=== PATIENT | female | born 1995 | race Caucasian/White ===

== ENCOUNTER → 2016-05-16 | Outpatient (REF) | payer OTHER | LOC: M SFHCCLAY 14:20 | PROVIDERS: ATTEND Nurse Practitioner | DX: J02.9 Acute pharyngitis, unspecified (principal) ==

== ENCOUNTER → 2019-07-02 | Outpatient (REF) | payer MEDICAID, SELFPAY | LOC: M LAB REF 12:29 | PROVIDERS: ATTEND Physician Assistant | DX: R30.0 Dysuria (principal) ==

== ENCOUNTER → 2019-07-10 | Outpatient (REF) | payer OTHER ==
[2019-07-10 13:28] LABS: HEMOGLOBIN 12.9 g/dl (12.0-15.5); MEAN CORPUSCULAR HEMOGLOBIN 30.1 pg (27.0-33.0); MEAN CORPUSCULAR HGB CONC 33.9 g/dl (32.0-36.5); MEAN CORPUSCULAR VOLUME 88.8 fl (80.0-96.0); PLATELET COUNT, AUTOMATED 291 10^3/uL (150-450); RED BLOOD COUNT 4.28 10^6/uL (4.00-5.40); WHITE BLOOD COUNT 7.3 10^3/uL (4.0-10.0)
[2019-07-10 14:23] LABS: HEPATITIS B SURFACE ANTIGEN NEGATIVE (NEGATIVE); HEPATITIS C VIRUS ABY INDEX 0.1 INDEX (<0.8); HIV 1&2 SCREEN CENTAUR NEGATIVE (NEGATIVE)
[2019-07-10 14:50] LABS: CHLAMYDIA DNA AMPLIFICATION NEGATIVE (NEGATIVE); GC DNA AMPLIFICATION NEGATIVE (NEGATIVE)
== END ==
LOC: M PLALAB 10:47
PROVIDERS: ATTEND Advanced Practice Midwife
DX: Z34.01 Encounter for supervision of normal first pregnancy, first trimester (principal)

== ENCOUNTER → 2019-09-03 | Outpatient (CLI) | payer OTHER ==
--- NOTE | 2019-09-03 13:24 | REP ---
OBSTETRIC SONOGRAPHY: HISTORY: Supervision of for anatomy. FINDINGS: Scanning through the gravid uterus demonstrates a single living intrauterine gestation in a transverse lie, head to the maternal right. motion is observed and heart rate is recorded at 158 beats per minute. A posterior fundal grade 0 placenta is seen without evidence of previa. Amniotic fluid is subjectively normal. Closed cervical length is measured transabdominally at 3.1 cm. No extrauterine abnormality is observed. No abnormality is observed. spine, right ventricular cardiac outflow tract, and nose and lips were less than optimally seen today due to position. The following additional anatomic structures are identified and felt to be unremarkable: cranium, choroid plexus, cavum, cerebellum and posterior fossa, four-chamber heart with left and ventricular outflow tract view, diaphragm, left-sided stomach, abdominal wall cord insertion, three-vessel cord, kidneys and bladder, upper and lower extremities. BIOMETRY CHART: BPD 4.4 cm = 19 weeks 1 day HC 16.5 cm = 19 weeks 1 day AC 13.7 cm = 19 weeks 1 day FL 3.0 cm = 19 weeks 1 day HL 2.9 cm = 19 weeks 2 days HC/AC ratio normal 1.20. Cephalic index normal 0.73. Estimated weight 276 grams, 0 pounds 9 ounces, 52nd percentile for 19 weeks 0 days. IMPRESSION: Viable single intrauterine gestation of 19 weeks 0 days by today's composite criteria. CORINA by today's sonography January 28, 2020. nose and lips, spine, and right ventricular outflow tract views less than optimally achieved due to position. Transverse lie.
== END ==
LOC: M WHC 11:09
PROVIDERS: ATTEND Advanced Practice Midwife
DX: O32.2XX0 Maternal care for transverse and oblique lie, not applicable or unspecified (principal); Z36.89 Encounter for other specified antenatal screening; Z3A.19 19 weeks gestation of pregnancy

== ENCOUNTER → 2019-10-30 | Outpatient (CLI) | payer OTHER ==
[2019-10-30 11:49] LABS: HEMATOCRIT 35.5 % (36.0-47.0); HEMOGLOBIN 11.6 g/dl (12.0-15.5); MEAN CORPUSCULAR HEMOGLOBIN 30.1 pg (27.0-33.0); MEAN CORPUSCULAR HGB CONC 32.7 g/dl (32.0-36.5); PLATELET COUNT, AUTOMATED 217 10^3/uL (150-450); RED BLOOD COUNT 3.86 10^6/uL (4.00-5.40); WHITE BLOOD COUNT 7.5 10^3/uL (4.0-10.0)
== END ==
LOC: M PLALAB 08:48
PROVIDERS: ATTEND Advanced Practice Midwife
DX: Z34.02 Encounter for supervision of normal first pregnancy, second trimester (principal); Z3A.00 Weeks of gestation of pregnancy not specified

== ENCOUNTER → 2019-10-30 | Outpatient (CLI) | payer OTHER ==
--- NOTE | 2019-11-06 06:58 | REP ---
OBSTETRIC ULTRASOUND REASON FOR EXAM: Follow-up of anatomy. On the prior study dated 09/03/2019, nose and lips, spine, and right cardiac ventricular outflow tract were not optimally demonstrated. Todays study is for follow-up of these structures. FINDINGS: There is a single intrauterine gestation in a transverse lie with the head to the maternal left. The placenta is posterior, grade 0 without previa and without abruptio. heart rate is 150 beats per minute. Cervix is 3.7 cm in length. The composite gestational age by todays exam is 26 weeks 6 days. The weight by todays exam is 1014 grams. This is the 23rd percentile. On the study today, the spine, the nose and lips, and the cardiac right and left ventricular outflow tracts are satisfactorily demonstrated and are unremarkable. The remainder of the anatomy was previously unremarkable and is not repeated. [facility]
== END ==
LOC: M WHC 08:02
PROVIDERS: ATTEND Specialist
DX: Z34.83 Encounter for supervision of other normal pregnancy, third trimester (principal)

== ENCOUNTER → 2020-01-04 | Outpatient (REF) | payer OTHER | LOC: M SFHCWAGY 13:20 | PROVIDERS: ATTEND Advanced Practice Midwife | DX: Z34.03 Encounter for supervision of normal first pregnancy, third trimester (principal) ==

== ENCOUNTER 2020-01-24 15:25 | Inpatient (IN) | payer OTHER ==
[~2020-01-24] VITALS: Ht 162.6 cm; Wt 85.3 kg
[2020-01-24] MEDS ORDERED: TUMS500C PO (15:41)
[2020-01-24] MEDS ORDERED: PRENTAB9 PO (15:41)
[2020-01-24 15:47] VITALS: BP 133/81
[2020-01-24] MEDS ORDERED: LACTATED RINGER'S 1000 ML IV STA (15:50)
[2020-01-24] MEDS ORDERED: LR 1,000 ML IV SCH (15:50)
--- NOTE | 2020-01-24 16:39 | HPEPDOC ---
Obstetrical History & Physical General Date of Admission Jan 24, 2020 at 15:50 History of Present Illness Gloria is a 24yo with SIUP at 39w5d by 1st trimester ultrasound aniketin g for leaking of clear fluid that started at 0900 this morning. She called and stated leaking, desired to come in after some time. States she feels contractions mostly in her back. No vaginal bleeding. Good movement. No fevers/chills. 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 Past Medical History Medical History headaches Surgical History: [place] teeth Family History Significant Family History: No pertinent family hx Social History Marital Status: Family situation: Spouse/partner home Psychosocial History: No pertinent psych hx * Smoker: non-smoker Alcohol: Denies Drugs: denies Imunizations Tdap status: current Influenza Status: declined Allergies Coded Allergies: No Known Allergies (Unverified , 01/24/20) Medications Scheduled No.137/Iron/Folic Acd ( Vitamin Tablet) 1 Each Tablet, 1 TAB PO DAILY Miscellaneous Medications Calcium Carbonate (Tums) 200 Mg Tab.chew, 500 MG PO Physical Examination Physical Examination GENERAL: Alert and oriented times three. ABDOMEN: Gravid and non-tender to touch. FETUS: Is vertex (VTX) by sterile vaginal examination EXTREMITIES: No edema of BLE Nitrazine of soaked marianne-pad is robustly POSITIVE Vital Signs/I&O Vital Signs Date Time Temp Pulse Resp B/P (MAP) Pulse Ox O2 Delivery O2 Flow Rate FiO2 01/24/20 15:47 98.2 72 133/81 (98) Laboratory Data 24H LABS Laboratory Tests 2 01/24/20 15:53: Serology Scanned Report Hepatitis B Testing Pertinent Laboratoy Data Blood Type: A+ RBC Antibody Screen: Negative HIV: Negative Hepatitis B: Negative Hepatitis C: Negative Rapid Plasma Reagin: Nonreactive Rubella: Immune Chlamydia/Gonorrhea: Negative Group B Streptococcus: Negative Glucose Tolerance Test: 78 Anatomy Ultrasound Ultrasound Date: Oct 30, 2019 Placenta Location: Posterior Normal Anatomy: Yes Placenta Previa: No Steroid Therapy Steroid Therapy: No Vaginal Examination Dilation: 1cm Effacement: 70% Station: -2 Cervical Consistency: Soft Cervical Position: Middle Presentation: Cephalic presentation Assessment Heart Rate (FHR): 125 Variability: Moderate Accelerations: Positive Decelerations: None Tocometer Contractions: Yes Frequency: irregular, every 3-7 min. Strength: palpated as mild Assessment/Plan Assessment Gloria is a 24yo with SIUP at 39w5d by 1st trimester ultrasound presenting with PROM, at 0900 this morning, clear. Irregular ctx. SCE /-2. Carrillo cervical bulb placed with 40cc NS, no issues. Plan to initiate pitocin IV. Cephalic. Vitals wnl, exam benign. Nitrazine positive. Cat I FHRT. Plan Admit and orient. 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 Diet: regular for dinner then clear liquids Group B Streptococcus (GBS) negative Labs and intravenous (IV) per unit protocol. Counseled on carrillo bulb, Pitocin and induction of labor (IOL). Lactated Ringers (LR): Bolus 800 mL, then at 125 mL/hr if epidural is desired Anticipate normal spontaneous delivery () MD Renetta Casanova Katrina D MD Jan 24, 2020 16:10
[2020-01-24 16:45] LABS: HEMOGLOBIN 11.3 g/dl (12.0-15.5); MEAN CORPUSCULAR HEMOGLOBIN 28.4 pg (27.0-33.0); MEAN CORPUSCULAR HGB CONC 32.3 g/dl (32.0-36.5); MEAN CORPUSCULAR VOLUME 87.9 fl (80.0-96.0); PLATELET COUNT, AUTOMATED 223 10^3/uL (150-450); RED BLOOD COUNT 3.98 10^6/uL (4.00-5.40); WHITE BLOOD COUNT 9.5 10^3/uL (4.0-10.0)
[2020-01-24] MEDS ORDERED: OXYTOCIN DRIP 30 UNITS in IV 1 EA IV SCH ×2 (16:45→22:39)
[2020-01-24] MEDS ORDERED: PROMETHAZINE INJ 25 MG/ML VIAL (J2550) IV PRN (17:00)
[2020-01-24] MEDS ORDERED: BUTORPHANOL 2 MG/ML INJ (J0595) IV PRN (17:00)
[2020-01-24] MEDS ORDERED: FENTANYL 2MCG/ML ROPIVACAINE 0.2% IN 0.9% NACL 100ML IVBAG As Ordered ONE (19:39)
[2020-01-24] MEDS ORDERED: diphenhydrAMINE 50MG/ML VIAL (J1200) IV PRN (20:30)
[2020-01-24] MEDS ORDERED: NALOXONE INJ 0.4MG/1ML VIAL (J2310 PER 1MG) IV PRN (20:30)
[2020-01-24] MEDS ORDERED: ONDANSETRON 4MG/2ML VIAL IV PRN (20:30)
[2020-01-24] MEDS ORDERED: ePHEDrine SULFATE 25 MG/5 ML(5MG/ML) SYRINGE IV PRN (20:30)
[2020-01-24] MEDS ORDERED: EPIDURAL/PCA KEYS XX PRN (20:30)
[2020-01-24] MEDS ORDERED: REFRIGERATOR IV KEYS XX PRN (20:30)
[2020-01-24] MEDS ORDERED: EPIDURAL COMMENT XX SCH (20:30)
[2020-01-24] MEDS ORDERED: FENTANYL/ROPIVACAINE/NACL BAG 100 ML EPIDURAL SCH (20:30)
[2020-01-24] MEDS ORDERED: LACTATED RINGER'S 1000 ML IV PRN (20:30)
--- NOTE | 2020-01-24 20:56 | IPNPDOC ---
Text Note Date of Service The patient was seen on 01/24/20. NOTE Intrapartum Note Pt doing well, just received epidural. Pitocin currently at 4mu. [place] bulb fell out soon after it was placed. Vitals wnl, afebrile SCE: 5/80/-1, clear fluid Will continue to titrate up on pitocin per protocol once patient is fully comfortable with epidural Will continue to closely observe Plan to recheck in 4hr or earlier as indicated Safe to proceed Rosita Jacskon MD [facility] I+O [facility] I+O Laboratory Tests 01/24/20 16:27 Vital Signs Date Time Temp Pulse Resp B/P (MAP) Pulse Ox O2 Delivery O2 Flow Rate FiO2 01/24/20 17:59 18 01/24/20 15:47 98.2 72 133/81 (98) Rosita Jackson MD Jan 24, 2020 20:56
[2020-01-24] MEDS ORDERED: DIBUCAINE 1% OINTMENT 30GM TOP PRN (22:45)
[2020-01-24] MEDS ORDERED: RHOGAM 300 MCG (1500 IU) INJ (J2790) IM SCH (22:45)
[2020-01-24] MEDS ORDERED: ACETAMINOPHEN TAB 650MG DOSE (2X325MG) PO PRN (22:45)
[2020-01-24] MEDS ORDERED: MEASLES,MUMPS,RUBELLA VACCINE INJ (MMR-II) (90707) SC SCH (22:45)
--- NOTE | 2020-01-24 22:55 | DNPDOC ---
[facility] Delivery Note Delivery Note DATE OF DELIVERY: 01/24/2020 PREDELIVERY DIAGNOSIS: 39w5d gestation and labor. POST DELIVERY DIAGNOSIS: Delivered. 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 FINDINGS: 5 pound 11 oz (2570g) male , Score 8/9 DELIVERY SUMMARY: Gloria is a 24yo [id number] s/p uncomplicated after presenting with PROM at 39w5d, delivering at 2159 on 01/24/20. She was 1cm on presentation, had carrillo cervical bulb placed and was started on IV pitocin. After carrillo bulb fell out, she soon received epidural and then she progressed very quickly to C/C/0 at which point she began pushing. Within a few sets of contractions, head delivered OA, restituted GREGORIA. Left anterior shoulder delivered followed by post erior shoulder and corpus. was placed on maternal abdomen, apgars 8/9, vigorous. After approximately 2 minutes, cord clamped x2 and cut by FOB. With uterine massage and traction on the cord, placenta delivered spontaneously and intact with 3 vessel centrally inserted cord. IV pitocin given per protocol. More uterine massage performed with cessation of bleeding, EBL 200ml. Inspection of perineum and vagina revealed a small superficial jono at the vaginal outlet (1mll) repaired with a figure of 8 using 3-0 vicryl suture as well as a left labial laceration repaired with 3-0 vicryl in routine fashion, both having excellent reapproximation and total hemostasis (1% lidocaine used for repair). All counts correct x2. Mom and infant were doing well when I left the room. MD Renetta Casanova Katrina D MD Jan 24, 2020 22:55
[2020-01-25] MEDS: IBUPROFEN 600MG TAB PO PRN ×2 (01:27→14:10)
[2020-01-25 01:30] VITALS: BP 129/71
[2020-01-25 06:00] VITALS: BP 132/82
[2020-01-25] MEDS ORDERED: LIDOCAINE 1% MDV 20ML VIAL INFIL ONE (08:15)
--- NOTE | 2020-01-25 08:27 | IPNPDOC ---
Progress Note Date of Service: Jan 25, 2020 Day#: 1 Progress Note PPD 1 SUBJECT: Gloria is a 24yo [id number] s/p uncomplicated after presenting with PROM at 39w5d, delivering at 2159 on 01/24/20. She is doing well day # 1. She has been ambulating, voiding spontaneously without issue and tolerating regular diet. Breast feeding without issue. Reports lochia is tapering as expected. No fevers/chills/nausea/vomiting/lightheadedness/dizziness. OBJECTIVE: VITAL SIGNS: Within normal limits, afebrile. Alert and oriented times three. Abdomen: Fundus firm at U-2. Soft, NTTP. Extremities: trace edema of BLE ASSESSMENT: Gloria is a 24yo [id number] s/p uncomplicated after presenting with PROM at 39w5d, delivering at 2159 on 01/24/20. She is doing well day # 1. Vitals within normal limits, afebrile, hemodynamically stable with no evidence of infection. PLAN: 1. Routine care 2. Tylenol and Motrin for pain. 3. Encourage breast feeding and ambulation. 4. Undecided on contraception, discussed options and will consider. If not hormonal contraception, couple plans to use condoms. 5. Regular diet 6. Anticipate discharge home tomorrow if meeting all milestones Rosita Jackson MD VS, I&O, 24H, [facility] Vital Signs/I&O Vital Signs Date Time Temp Pulse Resp B/P (MAP) Pulse Ox O2 Delivery O2 Flow Rate FiO2 01/25/20 06:00 97.6 70 16 132/82 (99) 99 Room Air I&O- Last 24 Hours up to 6 AM 01/25/20 05:59 Intake Total 2300 ml Output Total 200 ml Balance 2100 ml Laboratory Data 24H LABS Laboratory Tests 2 01/24/20 15:53: Serology Scanned Report Hepatitis B Testing 01/24/20 16:27: Nucleated Red Blood Cells % (auto) 0.0 CBC/BMP Laboratory Tests 01/24/20 16:27 Rosita Jackson MD Jan 25, 2020 08:27
[2020-01-25] MEDS: PRENATAL VITAMINS CHEWABLE TABLET PO SCH (09:01)
[2020-01-25] MEDS: DOCUSATE SODIUM 100 MG CAP PO SCH ×2 (09:01→20:31)
[2020-01-25] MEDS: ACETAMINOPHEN 500 MG TAB PO PRN ×2 (10:31→20:33)
[2020-01-25] MEDS ORDERED: INFLUENZA QUADRIVALENT PF VACCINE 0.5ML SYRINGE IM ONE (11:00)
[2020-01-25 18:00] VITALS: BP 138/86
[2020-01-25 20:34] VITALS: BP 133/87
[2020-01-25 20:44] VITALS: BP 133/87
[2020-01-26] MEDS: ACETAMINOPHEN 500 MG TAB PO PRN ×2 (04:51→12:53)
[2020-01-26 05:36] VITALS: BP 128/76
[2020-01-26] MEDS ORDERED: ACET-683 PO (06:51)
[2020-01-26] MEDS ORDERED: IBUP80TA PO (06:51)
--- NOTE | 2020-01-26 06:52 | IPNPDOC ---
Progress Note Date of Service: Jan 26, 2020 Day#: 2 Progress Note SUBJECT: Gloria is a 24-year-old 1 now Para 1-0-0-1 status post unco mplicated spontaneous vaginal delivery with vaginal laceration and repair, doing well day # 2. She has been ambulating, voiding spontaneously without issue and tolerating regular diet. Breast feeding without issue. Reports lochia is like a normal period. Tylenol and Motrin working well for pain management. OBJECTIVE: VITAL SIGNS: Within normal limits, afebrile. General: Alert and oriented times three. Respiratory: Regular rate, no accessory muscle use. Abdomen: Fundus firm at U. Soft, non tender Extremities: No edema, no calf tenderness. Minimal lochia. ASSESSMENT: Day 2 PLAN: 1. Discharge to home today. Reviewed home precautions regarding mastitis, endometritis, DVT, depression, pelvic rest, and return to the office in 6weeks. 2. Tylenol and Motrin for pain. 3. Encourage breast feeding and ambulation. 4. Routine PP visit in 6 weeks in clinic. 5. Routine care and nursing support. VS, I&O, 24H, Fishbone Vital Signs/I&O Vital Signs Date Time Temp Pulse Resp B/P (MAP) Pulse Ox O2 Delivery O2 Flow Rate FiO2 01/26/20 05:36 97.8 75 16 128/76 (93) 97 Room Air I&O- Last 24 Hours up to 6 AM 01/26/20 06:00 Output Total 800 ml Balance -800 ml JORDEN REAVES CNM Jan 26, 2020 06:48
[2020-01-26] MEDS: DOCUSATE SODIUM 100 MG CAP PO SCH (07:52)
[2020-01-26] MEDS: PRENATAL VITAMINS CHEWABLE TABLET PO SCH (07:52)
[2020-01-26] MEDS: IBUPROFEN 800 MG TAB PO PRN ×2 (07:53→15:53)
== END 2020-01-26 16:55 | disposition home or self-care (01) | DRG 560 ==
LOC: M LDO 15:25 → M LDI 15:50 → M OBS 01-25 01:05
PROVIDERS: ADMIT Obstetrics & Gynecology; ATTEND Obstetrics & Gynecology
PROC: 10E0XZZ Delivery of Products of Conception, External Approach (ICD-10-PCS; principal; 2020-01-24)
PROC: 0HQ9XZZ Repair Perineum Skin, External Approach (ICD-10-PCS; 2020-01-24)
DX: O42.02 Full-term premature rupture of membranes, onset of labor within 24 hours of rupture (principal); O62.3 Precipitate labor; Z3A.39 39 weeks gestation of pregnancy; Z37.0 Single live birth; O70.0 First degree perineal laceration during delivery

== ENCOUNTER 2020-01-27 08:41 | Emergency (ER) | payer OTHER ==
[~2020-01-27] VITALS: Ht 162.6 cm; Wt 68.2 kg
[2020-01-27 08:41] VITALS: BP 138/84
[~2020-01-27 08:41] MED LIST: ACET-683 PO; IBUP80TA PO; PRENTAB9 PO; TUMS500C PO
[2020-01-27] MEDS ORDERED: KETOROLAC 30 MG/ML 1ML VIAL IV ONE (09:15)
[2020-01-27] MEDS ORDERED: METOCLOPRAMIDE INJ 10MG/2ML VIAL (J2765 PER 1) IV ONE (09:15)
[2020-01-27] MEDS ORDERED: ACETAMINOPHEN 500 MG TAB PO ONE (09:15)
[2020-01-27] MEDS ORDERED: NS 1,000 ML IV ONE (09:15)
== END 2020-01-27 10:26 | disposition home or self-care (01) ==
LOC: M ED 08:41
DX: O89.4 Spinal and epidural anesthesia-induced headache during the puerperium (principal); Z3A.00 Weeks of gestation of pregnancy not specified
CPT/HCPCS: 96361; 96374; 96375; 99284; J1885; J2765

== ENCOUNTER → 2020-06-08 | Outpatient (REF) | payer OTHER | LOC: M SFHCWAGY 09:59 | PROVIDERS: ATTEND Advanced Practice Midwife | DX: Z12.4 Encounter for screening for malignant neoplasm of cervix (principal) ==

== ENCOUNTER → 2020-07-26 | Outpatient (REF) | payer OTHER ==
[2020-07-26 18:19] LABS: HEMATOCRIT 39.7 % (36.0-47.0); HEMOGLOBIN 12.8 g/dl (12.0-15.5); MEAN CORPUSCULAR HEMOGLOBIN 28.6 pg (27.0-33.0); MEAN CORPUSCULAR HGB CONC 32.2 g/dl (32.0-36.5); MEAN CORPUSCULAR VOLUME 88.6 fl (80.0-96.0); PLATELET COUNT, AUTOMATED 276 10^3/uL (150-450); RED BLOOD COUNT 4.48 10^6/uL (4.00-5.40); WHITE BLOOD COUNT 6.7 10^3/uL (4.0-10.0)
[2020-07-26 20:12] LABS: HIV 1&2 SCREEN CENTAUR NEGATIVE (NEGATIVE)
== END ==
LOC: M PLALAB 14:49
PROVIDERS: ATTEND Advanced Practice Midwife
DX: Z36.89 Encounter for other specified antenatal screening (principal); Z3A.11 11 weeks gestation of pregnancy

== ENCOUNTER → 2020-09-21 | Outpatient (CLI) | payer OTHER ==
--- NOTE | 2020-09-22 00:10 | REP ---
INDICATION: ANATOMY COMPARISON: None. TECHNIQUE: Transabdominal obstetrical ultrasound with color Doppler evaluation. FINDINGS: Examination demonstrates a single live intrauterine in cephalic presentation. motion is identified by technologist. Placenta is noted posterior/right lateral and grade 1 without evidence for placenta previa or abruption. Amniotic fluid volume is normal. Cervix measures 4.8 cm in length and appears closed.. Selected gestational age: 19 weeks 1 day with CORINA 02/14/2021. Gestational age by current measurements 19 weeks 2 days with CORINA 02/13/2021. FHR equals 158 beats per minute. Estimated weight 268 grams (37thpercentile). Anatomical assessment demonstrates normal structures including lungs, four-chamber heart/ventricular outflow tracts, diaphragm, stomach, cord insertion/three-vessel cord, kidneys/bladder, spine, and extremities. IMPRESSION: Single live intrauterine demonstrating appropriate estimated weight and growth. Limited evaluation primarily involving the cranium and facial features due to positioning. <Electronically signed by Valeriy Rodgers > 09/22/20 0006
== END ==
LOC: M WHC 13:33
PROVIDERS: ATTEND Advanced Practice Midwife
DX: Z34.82 Encounter for supervision of other normal pregnancy, second trimester (principal); Z3A.19 19 weeks gestation of pregnancy

== ENCOUNTER → 2020-11-03 | Outpatient (CLI) | payer OTHER ==
--- NOTE | 2020-11-03 14:12 | REP ---
INDICATION: F/U ANATOMY COMPARISON: 09/21/2020 TECHNIQUE: Transabdominal obstetrical ultrasound with color Doppler evaluation. FINDINGS: Examination demonstrates a single live intrauterine in cephalic presentation. motion is identified by technologist. Placenta is noted posterior and grade 1 without evidence for placenta previa or abruption. Amniotic fluid volume is normal. Cervix measures 4.3 cm in length and appears closed.. Selected gestational age: 25 weeks 2 days with CORINA 02/14/2021. Gestational age by current measurements 24 weeks 6 days with CORINA 02/17/2021. FHR equals 140 beats per minute. Estimated weight 708 grams (15thpercentile). Anatomical assessment demonstrates normal structures including cranium, choroid plexus, cavum, cerebellum/posterior fossa, facial features, lungs, four-chamber heart/ventricular outflow tracts, diaphragm, stomach, cord insertion/three-vessel cord, kidneys/bladder, spine, and lower extremities. IMPRESSION: Single live intrauterine in cephalic presentation demonstrating appropriate interval growth. In conjunction with prior examination anatomical assessment is complete and normal. <Electronically signed by Valeriy Rodgers > 11/03/20 [id number]
== END ==
LOC: M WHC 12:44
PROVIDERS: ATTEND Advanced Practice Midwife
DX: Z36.89 Encounter for other specified antenatal screening (principal); Z3A.24 24 weeks gestation of pregnancy

== ENCOUNTER → 2020-11-15 | Outpatient (CLI) | payer OTHER ==
[2020-11-15 15:07] LABS: HEMATOCRIT 37.2 % (36.0-47.0); HEMOGLOBIN 12.1 g/dl (12.0-15.5); MEAN CORPUSCULAR HGB CONC 32.5 g/dl (32.0-36.5); MEAN CORPUSCULAR VOLUME 89.2 fl (80.0-96.0); PLATELET COUNT, AUTOMATED 233 10^3/uL (150-450); RED BLOOD COUNT 4.17 10^6/uL (4.00-5.40)
== END ==
LOC: M PLALAB 11:41
PROVIDERS: ATTEND Advanced Practice Midwife
DX: Z34.82 Encounter for supervision of other normal pregnancy, second trimester (principal)

== ENCOUNTER → 2021-01-16 | Outpatient (REF) | payer OTHER | LOC: M SFHCWAGY 12:47 | PROVIDERS: ATTEND Obstetrics & Gynecology | DX: Z36.85 Encounter for antenatal screening for Streptococcus B (principal); Z3A.00 Weeks of gestation of pregnancy not specified ==

== ENCOUNTER 2021-02-18 00:26 | Inpatient (IN) | payer OTHER ==
[2021-02-18] VITALS (26 sets, daily range): BP systolic 99–145; BP diastolic 52–90
[~2021-02-18] VITALS: Ht 162.6 cm; Wt 93.1 kg
[2021-02-18] MEDS ORDERED: PENICILLIN G POTASSIUM IV 5 MU in D5W MINI-BAG PLUS 100 ML IV STA (01:01)
[2021-02-18] MEDS ORDERED: LACTATED RINGER'S 1000 ML IV STA (01:01)
[2021-02-18] MEDS ORDERED: OXYTOCIN DRIP 30 UNITS in IV 1 EA IV SCH ×2 (01:05→10:55)
[2021-02-18] MEDS ORDERED: METHYLERGONOVINE MALEATE 0.2 MG/ML VIAL (J2210) IM PRN (01:05)
[2021-02-18] MEDS ORDERED: TRANEXAMIC ACID INJection 1,000 MG in NS 100 ML IV PRN (01:05)
[2021-02-18] MEDS ORDERED: OXYTOCIN DRIP 30 UNITS in IV 1 EA IV PRN ×4 (01:05)
[2021-02-18] MEDS ORDERED: CARBOPROST TROMETHAMINE 250 MCG/ML AMP IM PRN (01:05)
[2021-02-18] MEDS ORDERED: LR 1,000 ML IV SCH (01:05)
[2021-02-18] MEDS ORDERED: LIDOCAINE 1% MDV 20ML VIAL INFIL PRN (01:05)
[2021-02-18 01:33] LABS: HEMATOCRIT 36.3 % (36.0-47.0); HEMOGLOBIN 12.1 g/dl (12.0-15.5); MEAN CORPUSCULAR HEMOGLOBIN 28.8 pg (27.0-33.0); MEAN CORPUSCULAR HGB CONC 33.3 g/dl (32.0-36.5); MEAN CORPUSCULAR VOLUME 86.4 fl (80.0-96.0); PLATELET COUNT, AUTOMATED 213 10^3/uL (150-450); WHITE BLOOD COUNT 9.2 10^3/uL (4.0-10.0)
[2021-02-18] MEDS ORDERED: PENICILLIN G POTASSIUM IV 2.5 MU in IV 1 EA IV SCH (06:00)
[2021-02-18] MEDS ORDERED: BUTORPHANOL 2 MG/ML INJ (J0595) IV ONE (07:20)
[2021-02-18] MEDS ORDERED: PROMETHAZINE INJ 25 MG/ML VIAL (J2550) IV ONE (07:20)
[2021-02-18] MEDS ORDERED: FENTANYL 2MCG/ML ROPIVACAINE 0.2% IN 0.9% NACL 100ML IVBAG As Ordered ONE (08:33)
[2021-02-18] MEDS ORDERED: diphenhydrAMINE 50MG/ML VIAL (J1200) IV PRN (08:45)
[2021-02-18] MEDS ORDERED: REFRIGERATOR IV KEYS XX PRN (08:45)
[2021-02-18] MEDS ORDERED: ePHEDrine SULFATE 25 MG/5 ML(5MG/ML) SYRINGE IV PRN (08:45)
[2021-02-18] MEDS ORDERED: LACTATED RINGER'S 1000 ML IV PRN (08:45)
[2021-02-18] MEDS ORDERED: FENTANYL/ROPIVACAINE/NACL BAG 100 ML EPIDURAL SCH (08:45)
[2021-02-18] MEDS ORDERED: EPIDURAL COMMENT XX SCH (08:45)
[2021-02-18] MEDS ORDERED: EPIDURAL/PCA KEYS XX PRN (08:45)
[2021-02-18] MEDS ORDERED: ONDANSETRON 4MG/2ML VIAL IV PRN (08:45)
[2021-02-18] MEDS ORDERED: NALOXONE INJ 0.4MG/1ML VIAL (J2310 PER 1MG) IV PRN (08:45)
[2021-02-18] MEDS ORDERED: OXYTOCIN 30 UNITS IN 0.9% NaCl 500ML IV BAG (J2590) As Ordered ONE (10:28)
[2021-02-18] MEDS ORDERED: DOCUSATE SODIUM 100MG CAPSULE PO PRN (10:55)
[2021-02-18] MEDS ORDERED: MEASLES,MUMPS,RUBELLA VACCINE INJ (MMR-II) (90707) SC SCH (10:55)
[2021-02-18] MEDS ORDERED: ACETAMINOPHEN TAB 650MG DOSE (2X325MG) PO PRN (10:55)
[2021-02-18] MEDS ORDERED: ANUSOL HC CREAM 30GM TOP PRN (10:55)
[2021-02-18] MEDS ORDERED: ACETAMINOPHEN 500 MG TAB PO PRN (10:55)
[2021-02-18] MEDS ORDERED: RHOGAM 300 MCG (1500 IU) INJ (J2790) IM SCH (10:55)
[2021-02-18] MEDS ORDERED: DIBUCAINE 1% OINTMENT 30GM TOP PRN (10:55)
[2021-02-18] MEDS ORDERED: METHYLERGONOVINE MALEATE 0.2 MG TAB PO PRN (10:55)
[2021-02-18] MEDS ORDERED: IBUPROFEN 600MG TAB PO PRN (10:55)
[2021-02-18] MEDS ORDERED: MOM 30ML SUSPENSION UDC PO PRN (10:55)
[2021-02-18] MEDS: IBUPROFEN 800 MG TAB PO PRN (14:56)
[2021-02-19 06:04] VITALS: BP 111/72
[2021-02-19] MEDS: PRENATAL VITAMINS CHEWABLE TABLET PO SCH (07:45)
[2021-02-19] MEDS: IBUPROFEN 800 MG TAB PO PRN (17:43)
[2021-02-19 18:00] VITALS: BP 141/78
[2021-02-20 06:00] VITALS: BP 114/60
[2021-02-20] MEDS: IBUPROFEN 800 MG TAB PO PRN (10:52)
[2021-02-20] MEDS: PRENATAL VITAMINS CHEWABLE TABLET PO SCH (10:52)
[2021-02-20] MEDS ORDERED: IBUP80TA PO (12:25)
[2021-02-20] MEDS ORDERED: ACET-683 PO (12:25)
== END 2021-02-20 13:20 | disposition home or self-care (01) | DRG 560 ==
LOC: M LDO 00:26 → M LDI 00:58 → M OBS 15:43
PROVIDERS: ADMIT Advanced Practice Midwife; ATTEND Obstetrics & Gynecology
PROC: 10E0XZZ Delivery of Products of Conception, External Approach (ICD-10-PCS; principal; 2021-02-18)
PROC: 10907ZC Drainage of Amniotic Fluid, Therapeutic from Products of Conception, Via Natural or Artificial Opening (ICD-10-PCS; 2021-02-18)
DX: O48.0 Post-term pregnancy (principal); Z3A.40 40 weeks gestation of pregnancy; Z37.0 Single live birth; O99.824 Streptococcus B carrier state complicating childbirth; O69.81X0 Labor and delivery complicated by cord around neck, without compression, not applicable or unspecified

== ENCOUNTER → 2022-01-31 | Outpatient (REF) | payer OTHER | LOC: M PLALAB 16:07 | PROVIDERS: ATTEND Nurse Practitioner Family | DX: Z12.4 Encounter for screening for malignant neoplasm of cervix (principal) ==

== ENCOUNTER → 2022-06-12 | Outpatient (REF) | payer OTHER ==
[2022-06-12 18:25] LABS: APPEARANCE, URINE MANUAL CLEAR (CLEAR); COLOR, URINE MANUAL YELLOW (YELLOW)
[2022-06-12 18:27] LABS: BILIRUBIN, URINE MANUAL NEGATIVE (NEGATIVE); BLOOD URINE MANUAL POSITIVE (NEGATIVE); GLUCOSE, URINE (UA) MANUAL NEGATIVE (NEGATIVE); KETONE, URINE MANUAL 1+ mg/dL (NEGATIVE); NITRITE, URINE MANUAL NEGATIVE (NEGATIVE); PROTEIN, URINE MANUAL TRACE mg/dL (NEGATIVE); UROBILINOGEN, URINE MANUAL NORMAL (NORMAL)
[2022-06-12 18:28] LABS: LEUKOCYTE ESTERASE, URINE MAN TRACE (NEGATIVE)
[2022-06-12 18:55] LABS: BACTERIA, URINE MOD AMOUNT; MUCUS, URINE MOD AMOUNT (NEGATIVE); RBC, URINE TNTC /hpf (0-3); SQUAMOUS EPITHELIAL CELL URINE MOD AMOUNT /hpf (SMALL AMT)
[2022-06-12 19:01] LABS: HYALINE CAST, URINE NONE SEEN /lpf (0-1)
== END ==
LOC: M LAB REF 17:38
PROVIDERS: ATTEND Physician Assistant Medical
DX: N39.0 Urinary tract infection, site not specified (principal)